=== PATIENT | male | born 1970 | race Hispanic/Latino ===

== ENCOUNTER 2023-06-11 02:11 | Emergency (ER) | payer OTHER ==
[~2023-06-11] VITALS: Ht 170.2 cm; Wt 91.6 kg
[2023-06-11] MEDS ORDERED: DIAZEPAM 5 MG/ML 2 ML SYG IVP ONE ×2 (03:45→04:00)
[2023-06-11] MEDS ORDERED: ETOMIDATE 20MG VIAL ONE (03:45)
[2023-06-11] MEDS ORDERED: LORAZEPAM 2 MG/ML 1 ML VIAL IVP ONE ×2 (03:45→04:00)
[2023-06-11] MEDS ORDERED: LORAZEPAM 2 MG/ML 1 ML VIAL ONE (03:46)
[2023-06-11] MEDS ORDERED: DIAZEPAM 5 MG/ML 2 ML SYG ONE (03:47)
[2023-06-11 04:06] LABS: BASOPHILS # (AUTO) 0.07 K/uL (0.00-0.20); BASOPHILS % (AUTO) 0.6 % (0.0-5.0); EOSINOPHILS # (AUTO) 0.16 K/uL (0.00-0.70); EOSINOPHILS % (AUTO) 1.5 % (0.0-8.0); HEMATOCRIT 43.8 % (42-54); IMMATURE GRANULOCYTE ABSOLUTE 0.04 K/uL (0-1); LYMPHOCYTES # (AUTO) 4.1 K/uL (1.0-4.8); LYMPHOCYTES % (AUTO) 38.2 % (21.0-51.0); MEAN CORPUSCULAR HGB CONC 33.8 g/dL (32.0-36.0); MEAN CORPUSCULAR VOLUME 91.6 fL (79-99); MONOCYTES # (AUTO) 0.8 K/uL (0.1-1.0); MONOCYTES % (AUTO) 7.1 % (3.0-13.0); NEUTROPHILS # (AUTO) 5.6 K/uL (1.8-7.7); NEUTROPHILS % (AUTO) 52.2 % (40.0-77.0); PLATELET COUNT (AUTO) 248 K/uL (130-400); RED BLOOD CELL COUNT(AUTO) 4.78 MIL/uL (4.50-6.20); RED CELL DISTRIBUTION WIDTH 12.8 % (11.0-15.5); WHITE BLOOD COUNT (AUTO) 10.8 K/uL (4.8-10.8)
[2023-06-11] MEDS ORDERED: IOHEXOL 350 MG/ML 100ML INFUS..BTL IV ONE (04:06)
[2023-06-11 04:15] LABS: CARBON DIOXIDE 27 mmol/L (21-32); CHLORIDE 105 mmol/L (101-111); CREATININE 1.3 mg/dL (0.5-1.5); GLOMERULAR FILTR. RATE CALC 66 mL/min (>90); GLUCOSE,RANDOM 103 mg/dL (70-105); POTASSIUM 3.8 mmol/L (3.5-5.1); SODIUM SERUM 141 mmol/L (136-145); UREA NITROGEN, BLOOD 7 mg/dL (7-18)
[2023-06-11 04:19] LABS: ALANINE AMINOTRANSFERASE 19 U/L (12-78); ALBUMIN 3.5 g/dL (3.5-5.0); ALCOHOL, BLOOD < 3 mg/dL (0-10); ASPARTATE AMINOTRANSFERASE 13 U/L (10-37); BILIRUBIN,TOTAL 0.4 mg/dL (0.2-1.0); CREATINE KINASE, TOTAL 172 U/L (21-232); SALICYLATE 7.2 mg/dL (2.8-20.0); TOTAL PROTEIN, SERUM 7.1 g/dL (6.0-8.3)
[2023-06-11 04:22] LABS: ACETAMINOPHEN < 1 mcg/mL (10-29)
[2023-06-11] MEDS ORDERED: PROPOFOL 1000 MG/100 ML 100 ML IV ONE ×2 (04:30→07:35)
[2023-06-11 04:36] VITALS: PULSE 72; O2SAT 100
[2023-06-11 04:54] LABS: ABG BASE EXCESS -3.9 mmol/L (-2.0-3.0); ABG HCO3 21.4 mmol/L (21.0-28.0); ABG OXYGEN SATURATION 99.2 % (95.0-99.0); ABG PCO2 40 mmHg (35-48); ABG PH 7.347 (7.35-7.450); CARBON MONOXIDE 1.4; DEVICE COMMENT JOSE RN; HHb 0.8; PO2, ARTERIAL BG 217.9 mmHg (83.0-108.0)
[2023-06-11] MEDS ORDERED: PROPOFOL 1000 MG/100 ML 1,000 MG in PROPOFOL 1000 MG/100 ML 100 ML IV STA (05:27)
[2023-06-11 05:37] LABS: APPEARANCE,URINE CLEAR (CLEAR); BILIRUBIN,URINE NEGATIVE (NEGATIVE); COLOR,URINE COLORLESS (YELLOW); GLUCOSE, URINE (UA) NEGATIVE (NEGATIVE); KETONES,URINE NEGATIVE (NEGATIVE); LEUKOCYTE ESTERASE ,URINE NEGATIVE Leu/uL (NEGATIVE); NITRATE,URINE NEGATIVE (NEGATIVE); PH,URINE 5.5 (5.0-8.0); PROTEIN,URINE NEGATIVE (NEGATIVE); UROBILINOGEN,URINE 0.2 mg/dL (0.2-1.0)
[2023-06-11 05:41] LABS: ADD UA MICROSCOPIC NO; OCCULT BLOOD,URINE NEGATIVE (NEGATIVE)
[2023-06-11] MEDS ORDERED: ETOMIDATE 20MG VIAL IVP ONE (06:00)
[2023-06-11] MEDS ORDERED: LEVETIRACETAM 500 MG/5 ML SD VIAL IV STA (06:16)
[2023-06-11] MEDS ORDERED: FENTANYL 1000MCG+NS 100ML 100 ML IV SCH (06:30)
[2023-06-11] MEDS ORDERED: LEVETIRACETAM 500 MG/5 ML SD VIAL IV SCH (06:30)
[2023-06-11 06:31] VITALS: PULSE 58; O2SAT 98
[2023-06-11] MEDS ORDERED: NOREPINEPHRIN 4MG/NS 250ML 250 ML IV ONE (06:46)
[2023-06-11] MEDS ORDERED: OXCA600T18 PO (07:44)
[2023-06-11] MEDS ORDERED: LEVE750T10 PO (07:44)
[2023-06-11] MEDS ORDERED: SERT-439 PO (07:48)
[2023-06-11 07:49] VITALS: PULSE 50; O2SAT 100
[2023-06-11 08:25] VITALS: BP 109/57; PULSE 50; RESP 14; O2SAT 99
== END 2023-06-11 10:05 | disposition short-term general hospital (02) ==
LOC: EDH 02:11
DX: T65.92XA Toxic effect of unspecified substance, intentional self-harm, initial encounter (principal); G40.901 Epilepsy, unspecified, not intractable, with status epilepticus; F32.A Depression, unspecified; Y92.89 Other specified places as the place of occurrence of the external cause
CPT/HCPCS: 80156; 82550; 82435; 82947; 84132; 84295; 80053; 82803; 85025; 85018; 81003; 83605; 80157; 36415; 71045 ×2; 70450; 72125; 71260; 74177; 96365; 96366; 99291; 99292; 96375; 96368; 93005; 31500; 36600; G0481; J3490; J3010; J3360; J2704 ×3; J2060; Q9967; A9900; 94002